=== PATIENT | female | born 1965 | race Caucasian/White ===

== ENCOUNTER 2024-03-10 05:59 | Inpatient (IN) ==
[2024-03-10] MEDS ORDERED: IOPAMIDOL 100 ML BOTTLE IV ONE (06:00)
[2024-03-10] MEDS: 0.9 % SODIUM CHLORIDE 1,000 ML IV ONE (06:22)
[2024-03-10] MEDS: fentaNYL 100 MCG/2 ML VIAL IV ONE (06:33)
[2024-03-10] MEDS: ONDANSETRON 4 MG/2 ML VIAL IV ONE (06:33)
[2024-03-10 06:34] LABS: Basophils # (Auto) 0.03 K/mcL (0.00-0.30); Basophils % (Auto) 0.2 % (0.0-2.0); Eosinophils # (Auto) 0 K/mcL (0.00-0.70); Eosinophils % (Auto) 0 % (0.0-7.0); Hemoglobin 11.6 g/dL (11.2-15.7); Lymphocytes # (Auto) 0.57 K/mcL (1.50-4.80); Lymphocytes % (Auto) 4.2 % (15.5-49.0); Mean Cell Volume 90.9 fL (80.0-100.0); Mean Corpuscular HGB Conc 31.4 g/dL (31.0-36.0); Monocytes # (Auto) 0.51 K/mcL (0.10-0.90); Monocytes % (Auto) 3.8 % (1.0-12.0); Neutrophils % (Auto) 91.5 % (38.0-78.0); Platelet Count 176 K/mcL (140-440); RBC 4.07 M/mcL (3.59-5.38); Red Cell Distribution Width 12.4 % (11.5-14.5); WBC 13.5 K/mcL (4.5-11.0)
[2024-03-10 06:38] LABS: Erythrocyte Sedimentation Rate 15 mm/hr (0-30)
[2024-03-10 07:05] LABS: ALT/SGPT 8 U/L (<40); AST/SGOT 23 U/L (<32); Albumin 3.7 gm/dL (3.2-5.2); Albumin/Globulin Ratio 1.3 (1.0-2.3); Alkaline Phosphatase 58 U/L (39-117); Bilirubin,Total 0.3 mg/dL (0.1-1.0); Blood Urea Nitrogen 11 mg/dL (6-20); Calcium 9.5 mg/dL (8.6-10.4); Carbon Dioxide 23 mmol/L (22-30); Chloride 99 mmol/L (96-108); Globulin 2.8 gm/dL (2.2-3.7); Glomerular Filtration Rate 81; Glucose 97 mg/dL (70-105)
[2024-03-10 08:33] LABS: Creatine Kinase 160 U/L (24-170)
[2024-03-10] MEDS: HYDROmorphone 1 MG/ML SYRINGE IV ONE (08:39)
[2024-03-10] MEDS: PIPERACILLIN SODIUM/TAZOBACTAM 3.375 GM in DEXTROSE 5% IN WATER 50 ML IV ONE (10:04)
[2024-03-10] MEDS: VANCOMYCIN 1,000 MG in 0.9 % SODIUM CHLORIDE 250 ML IV ONE (10:46)
[2024-03-10] MEDS: VANCOMYCIN 1,500 MG in 0.9 % SODIUM CHLORIDE 500 ML IV SCH (10:54)
[2024-03-10] MEDS: morphine 2 MG/ML VIAL IV PRN ×2 (14:51→22:00)
[2024-03-10] MEDS ORDERED: POLYETHYLENE GLYCOL 3350 17 GM PACKET PO PRN (15:40)
[2024-03-10] MEDS ORDERED: ONDANSETRON 4 MG/2 ML VIAL IV PRN (15:40)
[2024-03-10] MEDS ORDERED: MAGNESIUM SULFATE 2 GM/50 ML BAG IV PRN (15:40)
[2024-03-10] MEDS ORDERED: POTASSIUM CHLORIDE 20 MEQ TABLET PO PRN (15:40)
[2024-03-10] MEDS ORDERED: POTASSIUM CHLORIDE 40 MEQ in DEXTROSE 5% IN WATER 500 ML IV PRN (15:40)
[2024-03-10] MEDS ORDERED: SENNOSIDES 1 TABLET PO PRN (15:40)
[2024-03-10] MEDS ORDERED: IPRATROPIUM/ALBUTEROL 3 ML AMPUL.NEB NEB PRN (15:40)
[2024-03-10] MEDS: ceFAZolin 1 GM VIAL IV SCH (16:19)
[2024-03-10] MEDS: 0.9 % SODIUM CHLORIDE 10 ML SYRINGE IV SCH (16:21)
[2024-03-10] MEDS: CLINDAMYCIN IN 0.9 % SOD CHLOR 600 MG/50 ML BAG IV SCH (16:38)
[2024-03-10] MEDS: HYDROcodone/APAP 5/325MG TABLET PO PRN (16:38)
[2024-03-10 18:23] LABS: Amphetamine Screen,Urine Suspect positive; Barbiturate Screen,Urine None detected; Benzodiazepines Screen,Urine None detected; Cannabinoid Screen,Urine None detected; Cocaine Screen,Urine None detected; Opiate Screen,Urine Suspect Positive; Oxycodone, Urine Screen None detected; Phencyclidine Screen,Urine None detected
[2024-03-10] MEDS: DOCUSATE SODIUM 100 MG CAPSULE PO SCH (21:40)
[2024-03-10] MEDS: LORazepam 2 MG/ML VIAL IV PRN (21:59)
[2024-03-10] MEDS: ESCITALOPRAM 10 MG TABLET PO SCH (22:04)
[2024-03-11 07:27] LABS: ALT/SGPT < 5 U/L (<40); AST/SGOT 23 U/L (<32); Albumin 3.1 gm/dL (3.2-5.2); Albumin/Globulin Ratio 1.1 (1.0-2.3); Alkaline Phosphatase 56 U/L (39-117); Bilirubin,Direct < 0.2 mg/dL (0-0.3); Bilirubin,Total 0.3 mg/dL (0.1-1.0); Blood Urea Nitrogen 8 mg/dL (6-20); Calcium 8.7 mg/dL (8.6-10.4); Carbon Dioxide 22 mmol/L (22-30); Chloride 100 mmol/L (96-108); Globulin 2.7 gm/dL (2.2-3.7); Glomerular Filtration Rate 81; Glucose 84 mg/dL (70-105); Lactate Dehydrogenase 194 U/L (135-225); Phosphorous 2.3 mg/dL (2.5-4.5); Triglycerides 148 mg/dL (<150); Uric Acid 4.8 mg/dL (2.5-8.0)
[2024-03-11 07:38] LABS: Basophils # (Auto) 0.01 K/mcL (0.00-0.30); Basophils % (Auto) 0.1 % (0.0-2.0); Eosinophils # (Auto) 0.04 K/mcL (0.00-0.70); Eosinophils % (Auto) 0.4 % (0.0-7.0); Hematocrit 34.8 % (34.1-44.9); Hemoglobin 10.8 g/dL (11.2-15.7); Lymphocytes # (Auto) 0.83 K/mcL (1.50-4.80); Lymphocytes % (Auto) 8.5 % (15.5-49.0); Mean Cell Volume 89.7 fL (80.0-100.0); Monocytes # (Auto) 0.43 K/mcL (0.10-0.90); Monocytes % (Auto) 4.4 % (1.0-12.0); Neutrophils % (Auto) 86.1 % (38.0-78.0); Platelet Count 157 K/mcL (140-440); RBC 3.88 M/mcL (3.59-5.38); Red Cell Distribution Width 12.8 % (11.5-14.5); WBC 9.7 K/mcL (4.5-11.0)
[2024-03-11] MEDS: OMEPRAZOLE 20 MG CAPSULE PO SCH (07:40)
[2024-03-11] MEDS: buPROPion 150 MG TAB.XL.24H PO SCH (08:58)
[2024-03-11] MEDS: ENOXAPARIN 40 MG/0.4 ML SYRINGE SQ SCH (08:58)
[2024-03-11] MEDS: DULoxetine 30 MG CAPSULE PO SCH (08:58)
[2024-03-11] MEDS: HYDROXYCHLOROQUINE 200 MG TABLET PO SCH (08:58)
[2024-03-11] MEDS: GABAPENTIN 400 MG CAPSULE PO SCH (08:58)
[2024-03-11] MEDS: diphenhydrAMINE 50 MG/ML VIAL IV SCH (11:33)
[2024-03-11] MEDS: POLYETHYLENE GLYCOL 3350 17 GM PACKET PO SCH (11:33)
[2024-03-11] MEDS: ACETAMINOPHEN 325 MG TABLET PO PRN (15:19)
[2024-03-12 07:22] LABS: Blood Urea Nitrogen 9 mg/dL (6-20); Carbon Dioxide 24 mmol/L (22-30); Chloride 102 mmol/L (96-108); Glomerular Filtration Rate 95; Glucose 120 mg/dL (70-105)
[2024-03-12] MEDS: FUROSEMIDE 40 MG/4 ML VIAL IV ONE (10:26)
[2024-03-12] MEDS: valACYclovir 500 MG TABLET PO SCH (10:26)
[2024-03-12] MEDS: diphenhydrAMINE 25 MG CAPSULE PO ONE (10:29)
[2024-03-12] MEDS: BUTALB/ACETAMINOPHEN/CAFFEINE 1 TABLET PO ONE (10:29)
[2024-03-12] MEDS: diphenhydrAMINE 25 MG CAPSULE PO PRN (14:36)
[2024-03-12] MEDS ORDERED: BUTALB/ACETAMINOPHEN/CAFFEINE 1 TABLET PO PRN (15:30)
[2024-03-12] MEDS: POTASSIUM CHLORIDE 20 MEQ TABLET PO PRN (21:47)
[2024-03-12] MEDS: ZOLPIDEM 5 MG TABLET PO PRN (21:47)
[2024-03-13 07:58] LABS: Blood Urea Nitrogen 9 mg/dL (6-20); Calcium 9.3 mg/dL (8.6-10.4); Carbon Dioxide 25 mmol/L (22-30); Chloride 102 mmol/L (96-108); Glomerular Filtration Rate 95; Glucose 111 mg/dL (70-105)
[2024-03-17 17:07] LABS: Amphetamine Screen Positive
[2024-03-20 14:09] LABS: Opiate Screen Positive ng/mL (Cutoff=300)
== END 2024-03-13 13:15 | disposition home or self-care (01) | DRG 872 ==
LOC: ED 05:59 → MEDSUR 05:59
PROVIDERS: ADMIT Internal Medicine; ATTEND Internal Medicine